=== PATIENT | male | born 1980 | race Caucasian/White ===

== ENCOUNTER 2016-05-27 10:13 | Emergency (ER) | payer OTHER ==
[2016-05-27 10:18] VITALS: TEMP 98.1; O2SAT 95
--- NOTE | 2016-05-27 11:43 | EDPHY ---
H & P Stated Complaint: 1 week hemorrhoids/has tried everything Time Seen by Provider: 05/27/16 10:19 HPI/ROS: CHIEF COMPLAINT: Hemorrhoids HISTORY OF PRESENT ILLNESS: 35-year-old male presents emergency department with his who reports a one-week history of worsening hemorrhoids. Patient reports he has been using preparation H pads and suppositories also Sitz baths. He states these have worsened with pain that is not controlled. He denies fevers or chills, no abdominal pain, he reports mild rectal bleeding. Patient reports history of hemorrhoids that have resolved with [id number] treatment. REVIEW OF SYSTEMS: A comprehensive 10 point review of systems is otherwise negative aside from elements mentioned in the history of present illness. Source: Patient Exam Limitations: No limitations - Personal History Current Tetanus/Diphtheria Vaccine: Yes - Medical/Surgical History Hx Asthma: No Hx Chronic Respiratory Disease: No Hx Diabetes: No Hx Cardiac Disease: No Hx Renal Disease: No Hx Cirrhosis: No Hx Alcoholism: No Hx HIV/AIDS: No Hx Splenectomy or Spleen Trauma: No Other PMH: denies - Social History Smoking Status: Never smoked - Physical Exam Exam: GEN: Awake, alert, oriented, no acute distress RESP: nl resp effort MSK: Normal. SKIN: Patient with two, 2 cm x 2 cm thrombosed hemorrhoids Constitutional: Initial Vital Signs Temperature (C) 36.7 C 05/27/16 10:16 Heart Rate 69 05/27/16 10:16 Respiratory Rate 18 05/27/16 10:16 Blood Pressure 118/95 H 05/27/16 10:16 O2 Sat (%) 95 05/27/16 10:16 O2 Delivery Mode Room Air Allergies/Adverse Reactions: No Known Allergies Allergy (Unverified 05/27/16 10:16) Home Medications: Medication Instructions Recorded Hydrocodone/APAP 5/325 [[place] 1 tab PO Q4H PRN #10 tab 05/27/16 5/325] Hydrocortisone Acetate [Proctosert 30 mg RC TID #20 supp.rect 05/27/16 Hc] Medical Decision Making Procedures: Procedure: Incision and Drainage thrombosed hemorrhoid The patient had to thrombosed hemorrhoids external 2 cm x 2 cm. Risks, benefits , alternatives discussed with the patient and consent obtained. The area was prepped and draped in sterile fashion. The patient received local anesthesia with 1% lidocaine with epinephrine. Each hemorrhoid was incised with a #11 blade and clots was expressed. The patient tolerated the procedure well. The procedure was performed by myself. ED Course/Re-evaluation: 35-year-old male presents with two thrombosed hemorrhoids with no evidence of abscess. These were incised and thrombosis removed. Patient is discharged with a prescription for hydrocortisone suppositories and given Dr. Florence Rounds number for follow-up. I have instructed ibuprofen, continued Sitz baths and have given him a prescription for [place] for severe pain. He is given return precautions for worsening symptoms, fevers, any other questions or concerns. Differential Diagnosis: Diagnosis considered but not limited to abscess, hemorrhoid, thrombosed hemorrhoid Departure - Departure Disposition: Home, Routine, Self-Care Clinical Impression: Thrombosed external hemorrhoids Condition: Good Instructions: Hydrocodone/Acetaminophen (By mouth), Thrombosed Hemorrhoid (ED) Additional Instructions: Sitz baths frequently, use suppositories 3 times a day. Follow-up with Dr. Parmar for re-evaluation. Call today to schedule this appointment. Take 600 mg of ibuprofen every 8 hours with food, take [place] for severe pain. Referrals: Amrik Parmar MD [Medical Doctor] - As per Instructions (surgeon) Prescriptions: Hydrocodone/APAP 5/325 [[place] 5/325] 1 tab PO Q4H PRN #10 tab PRN Reason: Pain, Moderate Hydrocortisone Acetate [Proctosert Hc] 30 mg RC TID #20 supp.rect
[2016-05-27 11:59] VITALS: BP 134/90; PULSE 54; RESP 16
== END 2016-05-27 11:58 | disposition home or self-care (01) ==
PROC: 069Y0ZZ Drainage of Lower Vein, Open Approach (ICD-10-PCS; principal; 2016-05-27)
DX: K64.5 Perianal venous thrombosis (principal)

== ENCOUNTER 2016-08-13 19:23 | Emergency (ER) | payer OTHER ==
[2016-08-13 19:49] VITALS: TEMP 98.4
--- NOTE | 2016-08-13 20:30 | EDPHY ---
H & P Time Seen by Provider: 08/13/16 20:17 HPI/ROS: CHIEF COMPLAINT: Left leg numbness and shortness of breath HISTORY OF PRESENT ILLNESS: This 36-year-old man drove to [place] this past Thursday and then drove back on Thursday; [address] Thursday night he started getting feeling of numbness in his right leg from his groin all the way down to his toes. Not on either side, encompasses entirety of the leg. It was associated with discomfort with cold objects and a little bit of decreased sensation. No swelling and no redness. About 1 day ago he started getting mildly short of breath with symptoms being mild in nature and not associated with cough or fever. He says he felt short of breath today not at rest, but if he was running. No chest pain. REVIEW OF SYSTEMS: Eye: no change in vision ENT: no sore throat Cardiac: no chest pain or syncope Pulmonary: no cough or hemoptysis Abdomen: no vomiting, diarrhea, abdominal pain Musculoskeletal: no back pain, no neck pain Skin: no rash Neuro: no headache, no vertigo Constitutional: no fever : no urinary symptoms A comprehensive 10 point review of systems is otherwise negative aside from elements mentioned in the history of present illness. PAST MEDICAL HISTORY: Left knee meniscus surgery 4 years ago, eye surgery Social history: Travel as above, negative family history for premature coronary disease or venous thromboembolism. General Appearance: Alert and conversant, cooperative. Eyes: No scleral icterus. ENT, Mouth: Normal mucous membranes. Respiratory: Normal respiratory effort, breath sounds equal, lungs are clear to auscultation. Cardiovascular: Regular rate and rhythm. Positive dorsalis pedis and posterior tibial pulses bilaterally. Gastrointestinal: Abdomen is soft and non tender. Neurological: Alert and oriented x3. Normally conversant. Face symmetric, normal movement in all extremities. Sensation present in right leg but states is slightly decreased to light touch compared to the left. Patellar reflexes symmetric and 2+ bilaterally, ankle reflexes 1+ bilaterally, negative straight leg raising, negative clonus, toes downgoing bilaterally. Skin: Warm and dry, no rashes. No zoster. Musculoskeletal: No peripheral edema and no joint swelling. Normal ROM hip knee and ankle on right. No calf tenderness. Lower legs equal size, no skin redness or warmth. Compartments in both legs soft. Psychiatric: Not agitated. Emergency Department course/MDM: Initial investigation for possible DVT or PE. Plan for ultrasound of the right leg, EKG, labs including D-dimer. 2138: Results discussed, pretest probability for DVT or PE is relatively low, negative D-dimer. Think ACS unlikely. Still has numb right leg but normal motor function, plan for lumbar spine MRI, evaluate for spinal cord problem causing symptoms. Chest x-ray, shows normal heart size, cardiomyopathy less likely for SOB. Normal mediastinum. 2244: Results discussed. Low likelihood of emergent condition. Considered stroke , intracranial mass, ICH, dissection; think those are unlikely. Will try and arrange outpatient followup with PCP and/or Neurology. Ambulatory, not ataxic, tried to page radon inspector PCP for ED Mck[facility] but no answer. 08/14: contacted by case management regarding followup. Smoking Status: Never smoked Constitutional: Initial Vital Signs Temperature (C) 36.9 C 08/13/16 19:47 Heart Rate 64 08/13/16 19:47 Respiratory Rate 20 08/13/16 19:47 Blood Pressure 131/81 H 08/13/16 19:47 O2 Sat (%) 94 08/13/16 19:47 O2 Delivery Mode Room Air Allergies/Adverse Reactions: No Known Allergies Allergy (Unverified 08/13/16 19:46) Medical Decision Making - Diagnostics EKG Interpretation: 12-lead EKG interpreted by me; official reading is in trace master. My interpretation is sinus rhythm rate 51 no acute ischemic changes. Imaging Results: Imaging Impressions Lumbar Spine MRI 08/13/16 21:41 Impression: 1. No significant central canal or neural foraminal narrowing at any level. 2. Tiny central disk herniation (protrusion) at T12-L1. 3. Small disk herniation (protrusion) at L4-L5, with associated annulus tear. The disk protrusion results in minimal central canal narrowing. Findings discussed with Emergency Department physician, Ezio Choudhury M.D., on August 13, 2016 at 2250 hours. E:amm MRI per [facility] does not show reason for leg numbness on the right; 2246. Chest Xray normal; normal heart size and mediastinum, personally interpreted. Differential Diagnosis: Considered but I think unlikely would be arterial occlusion, DVT, compartment syndrome, fracture, cauda equina syndrome, aortic dissection, cellulitis or infection. - Data Points Laboratory Results: Laboratory Results 08/13/16 20:15 08/13/16 20:15 Departure - Departure Disposition: Home, Routine, Self-Care Clinical Impression: Right leg numbness, Dyspnea Condition: Good Instructions: Dyspnea (ED) Additional Instructions: Normal right leg ultrasound. D-dimer negative, PE unlikely. Normal hematocrit at 41.4. Chest xray and EKG normal. Please call tomorrow to primary care and Neurology for office follow-up. Please return immediately for worsening shortness of breath, chest pain, increasing numbness in leg, any weakness in leg, incontinence. Referrals: Vivian Block MD [Medical Doctor] - As per Instructions Louie Cortes DO [Medical Doctor] - As per Instructions
--- NOTE | 2016-08-13 20:32 | CPEKG ---
Heart Rate: 51 RR Interval: 1176 P-R Interval: 144 QRSD Interval: 98 QT Interval: 464 QTC Interval: 428 P [place]: 12 QRS [place]: 12 T Wave [place]: 17 EKG Severity - NORMAL ECG - EKG Impression: SINUS RHYTHM Electronically Signed By: Ezio Choudhury 13-Aug-2016 20:43:55
[2016-08-13 20:43] LABS: % IMMATURE GRANULYOCYTES 0.4 % (0.0-1.1); ABSOLUTE IMMATURE GRANULOCYTES 0.03 10^3/uL (0.00-0.10); ADD DIFF? NO; ADD MORPH? NO; ADD SCAN? NO; ATYPICAL LYMPHOCYTE FLAG 0 (0-99); FRAGMENT RBC FLAG 0 (0-99); HEMATOCRIT 41.4 % (40.0-51.0); HEMOGLOBIN 14.6 g/dL (13.7-17.5); LEFT SHIFT FLG 0 (0-99); LIPEMIA HEMOLYSIS FLAG 90 (0-99); MEAN CELL HEMOGLOBIN 31.3 pg (27.9-34.1); MEAN CELL HEMOGLOBIN CONCENTR. 35.3 g/dL (32.4-36.7); MEAN CELL VOLUME 88.7 fL (81.5-99.8); MEAN PLATELET VOLUME 10.3 fL (8.7-11.7); PLATELET CLUMPS FLAG 0 (0-99); PLATELET COUNT 206 10^3/uL (150-400); RED BLOOD CELL COUNT 4.67 10^6/uL (4.40-6.38); RED CELL DISTRIBUTION WIDTH 11.7 % (11.5-15.2)
[2016-08-13 20:52] LABS: ANION GAP 9 mEq/L (8-16); CALCIUM 9.5 mg/dL (8.5-10.4); CARBON DIOXIDE 27 mEq/l (22-31); CHLORIDE 103 mEq/L (97-110); CREATININE 0.9 mg/dL (0.7-1.3); GLOMERULAR FILTRATION RATE > 60; GLUCOSE 91 mg/dL (70-100); SODIUM 139 mEq/L (134-144)
[2016-08-13 23:04] VITALS: BP 111/77; PULSE 49; RESP 14; O2SAT 94
== END 2016-08-13 23:14 | disposition home or self-care (01) ==
DX: R06.00 Dyspnea, unspecified (principal); R20.0 Anesthesia of skin